=== PATIENT | male | born 1950 | race Two or more races ===

== ENCOUNTER → 2023-07-26 | Outpatient (CLI) | payer OTHER ==
[2023-07-26 11:21] LABS: Basophils # (auto) 0 10 ^3/uL (0-0.2); Basophils % (auto) 0.7 % (0.0-2.0); Eosinophils # (auto) 0.1 10 ^3/uL (0-0.8); Eosinophils % (auto) 1.2 % (0.0-7.0); Hematocrit 42.1 % (41.0-53.0); Lymphocytes # (auto) 1.6 10 ^3/uL (0.4-5.4); Lymphocytes % (auto) 26.7 % (10.0-50.0); Mean Corpuscular Hemoglobin 29.6 pg (28.0-32.0); Mean Corpuscular Hgb Conc. 33.2 g/dL (32.0-36.0); Monocytes # (auto) 0.6 10 ^3/uL (0-1.3); Monocytes % (auto) 9.3 % (0.0-12.0); Neutrophils # (auto) 3.7 10 ^3/uL (1.6-8.6); Neutrophils % (auto) 62.1 % (37.0-80.0); Nucleated Red Blood Cells % 0.1 %; Red Blood Cells 4.73 10^6/uL (4.5-5.90); Red Cell Distribution Width 14.8 % (11.8-14.3)
[2023-07-26 11:54] LABS: Alanine Aminotransferase 31 U/L (7-40); Albumin 4.6 g/dL (3.2-4.8); Alkaline Phosphatase 83 U/L (46-116); Anion Gap 4 (5-15); Aspartate Aminotransferase 23 U/L (13-40); BUN/Creatinine Ratio 13.6 (10.0-20.0); Bilirubin, Total 0.8 mg/dL (0.2-1.0); Blood Urea Nitrogen 12 mg/dL (9-23); Calcium 10.3 mg/dL (8.5-10.1); Carbon Dioxide 28 mmol/L (20-30); Chloride 110 mmol/L (98-107); Glucose 79 mg/dL (74-106); Potassium 3.8 mmol/L (3.5-5.1); Sodium 142 mmol/L (136-145)
[2023-07-26 11:55] LABS: Total Protein 8.1 g/dL (5.7-8.2)
[2023-07-26 12:45] LABS: Erythrocyte Sedimentation Rate 19 mm/hr (0-20)
[2023-07-27 08:11] LABS: Hepatitis B Surface Antibody Negative (Negative)
[2023-07-27 08:23] LABS: Hepatitis B Surface Antigen Negative (Negative)
[2023-07-27 08:44] LABS: Hepatitis B Core IgM Negative
[2023-07-27 08:45] LABS: Hepatitis C Antibody Negative (Negative)
[2023-07-27 10:06] LABS: Hepatitis B Core Total Antibod Negative (Negative)
[2023-07-28 13:07] LABS: QuantiFERON-TB Gold Plus Positive (Negative)
[2023-07-28 14:06] LABS: CCP IgG/IgA Antibody 8 units (0-19)
== END | disposition home or self-care (01) ==
LOC: LAB 10:48
PROVIDERS: ATTEND Urology
DX: M06.4 Inflammatory polyarthropathy (principal); L40.50 Arthropathic psoriasis, unspecified
CPT/HCPCS: 36415; 80053; 85025; 85652; 86200; 86705; 86706; 86803; 86812; 87340